=== PATIENT | male | born 1980 | race Caucasian/White ===

== ENCOUNTER 2020-06-13 13:03 | Emergency (ER) | payer SELFPAY ==
[~2020-06-13] VITALS: Ht 170 cm; Wt 88.4 kg
[2020-06-13] MEDS ORDERED: ASPIRIN 81 MG CHEW (CHILDREN'S ASA) ONE (13:50)
[2020-06-13] MEDS ORDERED: NITROGLYCERIN 0.4 MG SL TABS BTL 25'S SL ONE (13:50)
[2020-06-13] MEDS: NITROGLYCERIN 0.4 MG SL TABS BTL 25'S SL PRN ×2 (13:55→14:01)
[2020-06-13 13:57] LABS: BASOPHILS % (AUTO) 0 % (0-10); EOSINOPHILS # (AUTO) 0.1 10^3/uL (0.0-0.3); EOSINOPHILS % (AUTO) 1 % (0-10); HEMATOCRIT 46 % (40-54); HEMOGLOBIN 15.3 g/dL (13.3-17.7); LYMPHOCYTES # (AUTO) 2.2 10^3/uL (1.0-4.0); LYMPHOCYTES % (AUTO) 25 % (12-44); MEAN CORPUSCULAR HEMOGLOBIN 30 pg (25-34); MEAN CORPUSCULAR HGB CONC 34 g/dL (32-36); MEAN CORPUSCULAR VOLUME 89 fL (80-99); MEAN PLATELET VOLUME 9.5 fL (9.0-12.2); MONOCYTES # (AUTO) 0.9 10^3/uL (0.0-1.0); MONOCYTES % (AUTO) 10 % (0-12); NEUTROPHILS # (AUTO) 5.6 10^3/uL (1.8-7.8); NEUTROPHILS % (AUTO) 63 % (42-75); PLATELET COUNT 209 10^3/uL (130-400); WHITE BLOOD COUNT 8.8 10^3/uL (4.3-11.0)
--- NOTE | 2020-06-13 13:57 | ED Chest Pain ---
General Chief Complaint: Chest Pain Stated Complaint: CP,SOB Nursing Triage Note: PATIENT STATES LEFT SIDE CHEST PAIN, STARTED LAST NIGHT, WORSENED TODAY. STATES BACK PAIN ALSO Nursing Sepsis Screen: No Definite Risk Source: patient Exam Limitations: no limitations History of Present Illness Date Seen by Provider: Jun 13, 2020 Time Seen by Provider: 13:34 Initial Comments Patient presents ER by private conveyance from home with chief complaint of chest pain. He denies any shortness of breath fever cough chills nausea vomiting diarrhea. No sick contacts. He says been having problems with this pain for couple weeks. This particular episode started yesterday evening, he was just sitting in a chair working when it started. It is not worse with exertion. He says as he gets up and walks around it feels better but when he sits down in a chair it is worse. He says the pain radiates through to his back which he is never had that pain before. In the middle of his back between his shoulder blades. No trauma. No history of coronary disease. Last use of methamphetamines was about 7 months ago. He has used tobacco has a history of hypertension and hyperlipidemia and recently was started on statins. He is known to [facility] for primary care. He does not have a history of coronary disease or lung disease. He was on diclofenac recently but was stopped at his last appointment a week or 2 ago because he had CKD stage II on labs. Patient has no significant family history outside of diabetes. He denies diabetes himself. The patient complains that the pain in his chest wall makes his chest and abdomen twitch rhythmically. Allergies and Home Medications Allergies Coded Allergies: No Known Drug Allergies (Unverified , 06/13/20) Patient Home Medication List Home Medication List Reviewed: Yes Review of Systems Review of Systems Constitutional: No chills, No diaphoresis, No fever, No malaise EENTM: No Blurred Vision, No Double Vision Respiratory: Denies Cough, Denies Shortness of Air Cardiovascular: Chest Pain; Denies Edema, Denies Lightheadedness Gastrointestinal: Denies Constipated, Denies Diarrhea Genitourinary: Denies Burning, Denies Discharge Musculoskeletal: see HPI, back pain; No joint pain Skin: No pruritus, No rash Psychiatric/Neurological: Denies Headache, Denies Numbness All Other Systems Reviewed Negative Unless Noted: Yes Past Qaiivey-Ngqfrm-Cvmezg Hx Patient Social History Alcohol Use: Occasionally Uses Recreational Drug Use: Yes Drug of Choice: meth 2020 Smoking Status: Current Everyday Smoker Type Used: Cigarettes Recent Foreign Travel: No Contact w/Someone Who Travel: No Recent Infectious Disease Expo: No Past Medical History Surgeries: No Cardiac: Yes High Cholesterol, Hypertension Genitourinary: Yes Renal Failure Physical Exam Vital Signs Vital Signs - First Documented 06/13/20 13:41 Temp 37.0 Pulse 93 Resp 20 B/P (MAP) 144/103 (117) Pulse Ox 97 O2 Delivery Room Air Capillary Refill : Less Than 3 Seconds Height, Weight, BMI Height: '" Weight: lbs. oz. kg; 30.00 BMI Method: General Appearance: Anxious, Mild Distress HEENT: PERRL/EOMI, Moist Mucous Membranes Neck: Full Range of Motion, Normal Inspection Respiratory: No Chest Non Tender (Chest wall tender to palpation); Lungs Clear, Normal Breath Sounds, No Accessory Muscle Use, No Respiratory Distress Cardiovascular: Regular Rate, Rhythm, No Edema, No Gallop, No JVD, No Murmur, Normal Peripheral Pulses Gastrointestinal: Normal Bowel Sounds, No Organomegaly, No Pulsatile Mass, Non Tender, Soft Extremity: Normal Capillary Refill, Normal Inspection, Normal Range of Motion, Non Tender, No Calf Tenderness, No Pedal Edema Neurologic/Psychiatric: Alert, Oriented x3, Normal Mood/Affect Skin: Normal Color, Warm/Dry Progress/Results/Core Measures Results/Orders Lab Results Laboratory Tests Test 06/13/20 13:45 Range/Units White Blood Count 8.8 4.3-11.0 10^3/uL Red Blood Count 5.13 4.30-5.52 10^6/uL Hemoglobin 15.3 13.3-17.7 g/dL Hematocrit 46 40-54 % Mean Corpuscular Volume 89 80-99 fL Mean Corpuscular Hemoglobin 30 25-34 pg Mean Corpuscular Hemoglobin Concent 34 32-36 g/dL Red Cell Distribution Width 12.8 10.0-14.5 % Platelet Count 209 130-400 10^3/uL Mean Platelet Volume 9.5 9.0-12.2 fL Immature Granulocyte % (Auto) 1 % Neutrophils (%) (Auto) 63 42-75 % Lymphocytes (%) (Auto) 25 12-44 % Monocytes (%) (Auto) 10 0-12 % Eosinophils (%) (Auto) 1 0-10 % Basophils (%) (Auto) 0 0-10 % Neutrophils # (Auto) 5.6 1.8-7.8 10^3/uL Lymphocytes # (Auto) 2.2 1.0-4.0 10^3/uL Monocytes # (Auto) 0.9 0.0-1.0 10^3/uL Eosinophils # (Auto) 0.1 0.0-0.3 10^3/uL Basophils # (Auto) 0.0 0.0-0.1 10^3/uL Immature Granulocyte # (Auto) 0.1 0.0-0.1 10^3/uL Prothrombin Time 13.3 12.2-14.7 SEC INR Comment 1.0 0.8-1.4 Activated Partial Thromboplast Time 29 24-35 SEC D-Dimer < 0.27 0.00-0.49 UG/ML Sodium Level 137 135-145 MMOL/L Potassium Level 4.0 3.6-5.0 MMOL/L Chloride Level 105 98-107 MMOL/L Carbon Dioxide Level 22 21-32 MMOL/L Anion Gap 10 5-14 MMOL/L Blood Urea Nitrogen 18 7-18 MG/DL Creatinine 0.99 0.60-1.30 MG/DL Estimat Glomerular Filtration Rate > 60 BUN/Creatinine Ratio 18 Glucose Level 99 70-105 MG/DL Calcium Level 9.3 8.5-10.1 MG/DL Corrected Calcium 8.5-10.1 MG/DL Magnesium Level 2.0 1.6-2.4 MG/DL Total Bilirubin 0.6 0.1-1.0 MG/DL Aspartate Amino Transf (AST/SGOT) 38 H 5-34 U/L Alanine Aminotransferase (ALT/SGPT) 70 H 0-55 U/L Alkaline Phosphatase 78 40-136 U/L Myoglobin 44.1 10.0-92.0 NG/ML Troponin I < 0.028 <0.028 NG/ML B-Type Natriuretic Peptide < 10.0 <100.0 PG/ML Total Protein 8.0 6.4-8.2 GM/DL Albumin 4.8 H 3.2-4.5 GM/DL Lipase 33 8-78 U/L My Orders Orders - LEX RANGEL Continuous Ekg Monitoring (06/13/20 13:15) Ekg Tracing (06/13/20 13:15) Cbc With Automated Diff (06/13/20 13:51) Magnesium (06/13/20 13:51) Chest 1 View, Ap/Pa Only (06/13/20 13:51) Ekg Tracing (06/13/20 13:51) Comprehensive Metabolic Panel (06/13/20 13:51) Myoglobin Serum (06/13/20 13:51) Protime With Inr (06/13/20 13:51) Partial Thromboplastin Time (06/13/20 13:51) O2 (06/13/20 13:51) Monitor-Rhythm Ecg Trace Only (06/13/20 13:51) Lipid Panel (06/14/20 06:00) Ed Iv/Invasive Line Start (06/13/20 13:51) Lipase (06/13/20 13:51) BNP (06/13/20 13:51) Fibrin Degradation Products (06/13/20 13:51) Troponin I (06/13/20 13:51) Nitroglycerin 0.4 Mg Btl 25's (Nitrostat (06/13/20 14:00) Aspirin Chewable Tablet (Baby Aspirin Ch (06/13/20 14:00) Ed Iv/Invasive Line Start (06/13/20 13:51) Ns Iv 1000 Ml (Sodium Chloride 0.9%) (06/13/20 14:00) Nitroglycerin 0.4 Mg Btl 25's (Nitrostat (06/13/20 13:50) Aspirin Chewable Tablet (Baby Aspirin Ch (06/13/20 13:50) Lidocaine 2% Viscous 15 Ml (Xylocaine Vi (06/13/20 14:30) Antacid Suspension (Mylanta Suspension (06/13/20 14:30) Famotidine Injection (Pepcid Injection) (06/13/20 14:30) Medications Given in ED Current Medications Medications Dose Ordered Sig/Janeth Route Start Time Stop Time Status Last Admin Dose Admin Al Hydrox/Mg Hydrox/Simethicone 30 ml ONCE ONCE PO 06/13/20 14:30 06/13/20 14:32 DC 06/13/20 14:49 30 ML Aspirin 324 mg ONCE ONCE PO 06/13/20 14:00 06/13/20 14:01 DC 06/13/20 13:54 324 MG Lidocaine HCl 15 ml ONCE ONCE PO 06/13/20 14:30 06/13/20 14:32 DC 06/13/20 14:49 15 ML Nitroglycerin 0.4 mg UD PRN SL 06/13/20 14:00 06/13/20 14:01 0.4 MG Vital Signs/I&O 06/13/20 06/13/20 13:41 13:43 Temp 37.0 Pulse 93 Resp 20 B/P (MAP) 144/103 (117) Pulse Ox 97 O2 Delivery Room Air Room Air Blood Pressure Mean: 117 Progress Progress Note #1: Time: 13:56 Progress Note Chest wall pain versus possible referred pain from gallbladder, coronary disease, pulmonary disease, less likely aortic disease. Since his pain radiates to his back but is reproducible on direct palpation of his back and osteoarthritis is more likely. GERD is also a possibility. Plan to start with aspirin nitroglycerin and some fluids. If this does not help we can trial a GI cocktail. Will get troponin, D-dimer and chest x-ray. If he has a negative troponin for this episode of pain this been going on for over 12 hours then his heart score would be 3 points. Low risk; 0.9-1.7% 30-day MACE. After 2 doses of nitroglycerin his pain went from a 7 out of 10 to a 5 out of 10. Progress Note #2: Time: 14:29 Progress Note Patient states his pains a back up to a 6 or 7. He is unconvinced the ni troglycerin helped. We will try a GI cocktail. He says he is no longer having anterior chest pain just under the left wrist and the left mid axillary region. No rash. Were going to try GI cocktail. Initial troponin is negative. Again he complains that his pain is causing twitching. Musculoskeletal remained to the top of the differential. Progress Note #3: Time: 15:07 Progress Note Patient states that his pain was significantly reduced to 3 out of 10 after the GI cocktail. It is very likely that the diclofenac caused some gastritis. He probably does have musculoskeletal pain. He describes an overnight stay in [place] with a stress test that was negative about a year ago. Were going to have him follow-up with cardiology in the clinic and if they give clearance he can then follow-up with Dr. Edwards, general surgery to consider endoscopy. Were going to put him on Carafate and omeprazole. Initial ECG Impression Date: Jun 13, 2020 Initial ECG Impression Time: 13:35 Initial ECG Rate: 95 Initial ECG Rhythm: Normal Sinus Initial ECG Intervals: Normal Initial ECG Impression: Normal Initial ECG Comparisson: No Previous ECG Available Comment Normal sinus rhythm without clinically relevant ST changes. Diagnostic Imaging Diagonstic Imaging: Xray Plain Films/CT/US/NM/MRI: chest Comments No acute cardiopulmonary processes on a 1 view chest x-ray. NAME: MIKAYLA AVITIA [facility] REC#: [id number] PT STATUS: REG ER : 1980 PHYSICIAN: LEX RANGEL MD ADMIT DATE: 06/13/20/ER Draft Date of Exam:06/13/20 CHEST 1 VIEW, AP/PA ONLY INDICATION: Left-sided chest pain. FINDINGS: Portable chest shows the lungs to be well-aerated and clear. There is no air-trapping. Heart is not enlarged. There is no pulmonary edema or hilar adenopathy. No pneumothorax or pleural effusion. No bony abnormalities. IMPRESSION: Normal portable chest. Dictated on workstation # [id number] Dict: 06/13/20 1425 Trans: 06/13/20 1426 [facility] [id number] Interpreted by: TERE HYMAN MD Electronically signed by: Reviewed: Reviewed by Me Departure Impression Primary Impression: Chest wall pain Additional Impressions: Gastroesophageal reflux disease Qualified Codes: K21.0 - Gastro-esophageal reflux disease with esophagitis NSAID induced gastritis Disposition: 01 HOME, SELF-CARE Condition: Stable Departure-Patient Inst. Decision time for Depature: 15:09 Referrals: [facility] (PCP/Family) Primary Care Physician TERE EDWARDS BASHAR J MD Patient Instructions: Costochondritis, Gastritis ED Add. Discharge Instructions: I suspect your chest pain is caused by the chest wall and not the heart. To help you work this up Dr. Pino would be willing to meet you in the clinic if you will give him a call. Continue taking your lisinopril and atorvastatin as prescribed. Stop taking the diclofenac, ibuprofen, Aleve, naproxen. Tylenol/paracetamol/acetaminophen is okay. Start taking omeprazole 40 mg daily for the next month. Start taking the Carafate 30 minutes prior to meals and at bedtime for the next 2 weeks to help treat your gastritis. I think your gastritis or stomach irritation is caused by the diclofenac. If the certified credit counselor releases you from his care with no further concerns then you may also follow-up with Dr. Edwards, general surgery. He can help you manage your symptoms if they are related to your stomach, gallbladder etc. Return to the nearest ER if you have more intractable pain that does not respond to Maalox/Mylanta/Tums/Rolaids etc. All discharge instructions reviewed with patient and/or family. Voiced understanding. Scripts Sucralfate (Carafate) 1 Gm Tablet 1 GM PO QIDACHS for 14 Days, #56 TAB 0 Refills Prov: LEX RANGEL 06/13/20 Omeprazole (Omeprazole) 40 Mg Capsule.dr 40 MG PO DAILY for 30 Days, #30 CAP 0 Refills Prov: LEX RANGEL 06/13/20 Copy Copies To 1: TERE EDWARDS DO; SHOBHA PINO MD, TITUS J Jun 13, 2020 13:57
[2020-06-13] MEDS ORDERED: ASPIRIN 81 MG CHEW (CHILDREN'S ASA) PO ONE (14:00)
[2020-06-13] MEDS ORDERED: NS IV 1000 ML 1,000 ML IV SCH (14:00)
[2020-06-13 14:08] LABS: ALBUMIN 4.8 GM/DL (3.2-4.5); CHLORIDE 105 MMOL/L (98-107); SODIUM 137 MMOL/L (135-145)
[2020-06-13 14:09] LABS: CALCIUM 9.3 MG/DL (8.5-10.1)
[2020-06-13 14:10] LABS: PROTHROMBIN TIME PATIENT 13.3 SEC (12.2-14.7)
[2020-06-13 14:11] LABS: GLUCOSE 99 MG/DL (70-105)
[2020-06-13 14:12] LABS: BILIRUBIN,TOTAL 0.6 MG/DL (0.1-1.0); CARBON DIOXIDE 22 MMOL/L (21-32)
[2020-06-13 14:14] LABS: ALKALINE PHOSPHATASE 78 U/L (40-136); CREATININE SERUM 0.99 MG/DL (0.60-1.30); GFR ESTIMATED > 60
[2020-06-13 14:15] LABS: BUN/CREATININE RATIO 18
[2020-06-13 14:17] LABS: ALANINE AMINOTRANSFERASE 70 U/L (0-55)
[2020-06-13 14:18] LABS: LIPASE 33 U/L (8-78)
--- NOTE | 2020-06-13 14:27 | Diagnostic Imaging Report ---
INDICATION: Left-sided chest pain. FINDINGS: Portable chest shows the lungs to be well-aerated and clear. There is no air-trapping. Heart is not enlarged. There is no pulmonary edema or hilar adenopathy. No pneumothorax or pleural effusion. No bony abnormalities. IMPRESSION: Normal portable chest. Dictated by: Dictated on workstation # [id number]
[2020-06-13] MEDS ORDERED: FAMOTIDINE 20MG/2ML IV (PEPCID) IV STA (14:30)
[2020-06-13] MEDS ORDERED: LIDOCAINE 2% VISCOUS 15 ML UDC PO ONE (14:30)
[2020-06-13] MEDS ORDERED: ANTACID SUSP 30 ML UDC (MYLANTA) PO ONE (14:30)
[2020-06-13] MEDS ORDERED: OMEP40CA27 PO (15:13)
[2020-06-13] MEDS ORDERED: SUCR1TAB36 PO (15:13)
[2020-06-13 15:23] VITALS: BP 122/88
== END 2020-06-13 15:23 | disposition home or self-care (01) ==
LOC: ER 13:09
DX: R07.89 Other chest pain (principal); K21.9 Gastro-esophageal reflux disease without esophagitis; K29.60 Other gastritis without bleeding; F41.9 Anxiety disorder, unspecified; F17.210 Nicotine dependence, cigarettes, uncomplicated
CPT/HCPCS: 36415; 71045; 80053; 83690; 83735; 83874; 83880; 84484; 85025; 85379; 85610; 85730; 93005; 93041

== ENCOUNTER 2021-04-21 05:42 | Outpatient (RCR) | payer SELFPAY ==
[~2021-04-21 05:42] MED LIST: OMEP40CA6 PO; SUCR1TAB36 PO
[2021-04-21] MEDS ORDERED: ATOR80TA76 PO (13:33)
[2021-04-21] MEDS ORDERED: LISI10TA25 PO (13:33)
== END 2021-04-28 09:01 | disposition home or self-care (01) ==
LOC: PREOP 05:42 → EDSTATUS 09:45 → PREOP 04-28 09:01
PROVIDERS: ATTEND Surgery
DX: Z01.818 Encounter for other preprocedural examination (principal)

== ENCOUNTER 2021-04-28 09:21 | Day surgery (SDC) | payer OTHER ==
[~2021-04-28] VITALS: Ht 172.7 cm; Wt 94.4 kg
[~2021-04-28 09:21] MED LIST changes: +ATOR80TA76 PO; +LISI10TA25 PO
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
[2021-04-28] MEDS ORDERED: LACTATED RINGERS 1,000 ML IV ONE (09:47)
[2021-04-28] MEDS ORDERED: LACTATED RINGERS 1,000 ML IV STA (09:53)
[2021-04-28] MEDS ORDERED: HURRICAINE EXT TUBE (BENZOCAINE) XX PRN (10:00)
[2021-04-28 10:11] VITALS: BP 123/81
--- NOTE | 2021-04-28 10:47 | Progress Note-Pre Operative ---
Pre-Operative Progress Note H&P Reviewed The H&P was reviewed, patient examined and no changes noted. Time Seen by Provider: 10:45 Date H&P Reviewed: Apr 28, 2021 Time H&P Reviewed: 10:44 Pre-Operative Diagnosis: Chronic gastritis, hx of H. Pylori TERE EDWARDS DO Apr 28, 2021 10:47
[2021-04-28] MEDS ORDERED: MIDAZOLAM 2 MG/2 ML (VERSED) VIAL ONE (11:17)
[2021-04-28] MEDS ORDERED: proPOfol 200 MG/20 ML (DIPRIVAN) VIAL IV ONE (11:17)
[2021-04-28 11:35] VITALS: BP 89/55
--- NOTE | 2021-04-28 11:36 | Progress Note-Post Operative ---
Post-Operative Progess Note Surgeon (s)/Crane Assembler (s) Surgeon TERE EDWARDS DO Crane Assembler: none Pre-Operative Diagnosis Chronic gastritis, hx of H. Pylori Post-Operative Diagnosis Gastritis Small hiatal hernia Procedure & Operative Findings Date of Procedure 04/28/21 Procedure Performed/Findings EGD with bx PROCEDURE NOTE: After informed consent was obtained, the patient was brought to the endoscopy suite, placed in bed in left lateral decubitus position. He was administered IV sedation by the INSTRUMENT TECH who then monitored vitals the entire time, heart rate, blood pressure and pulse ox and the scope was inserted down the mouth through the esophagus into the stomach. On the way down, noted some mild esophagitis, took a picture, pushed into the stomach, pushed past the antrum into the duodenum. Duodenum looked good. Pulled back and did a biopsy of antrum, then retroflexed the scope, saw small sliding hiatal hernia, took a picture of this and then pulled the scope into the GE junction, took another picture and then did a biopsy of the GE junction. Pushed the scope back into the stomach, suctioned all the air out of the stomach. At this point pulled the scope up the esophagus and out the mouth. The patient tolerated the procedure, and he recovered in endoscopy suite. Anesthesia Type IV sedation by INSTRUMENT TECH Estimated Blood Loss Estimated blood loss (mL): scant Specimens/Packing Specimens Removed Antral bx body of stomach bx GE jxn bx TERE EDWARDS DO Apr 28, 2021 11:36
--- NOTE | 2021-04-28 11:37 | Endoscopy Discharge Instruct ---
Endo Procedure/Findings Findings 1.: Gastritis 2.: Hiatal Hernia Discharge Instructions - Activity: You might feel a little sleepy until tomorrow. This is due to the medicine you received to relax you. Until tomorrow, you should: NOT drive a car, operate machinery or power tools. NOT drink any alcoholic beverages. NOT make any important decisions or sign importortant papers. Do not return to work until tomorrow, unless otherwise instructed. Resume previous activities tomorrow. Diet: Start by taking liquids. If you tolerate liquids, advance to solid food. 1.: EGD in 3 years Notify Physician - If you experience excessive bleeding, unusual abdominal pain, fever, or chest pain, contact your doctor immediately. TERE EDWARDS DO Apr 28, 2021 11:37
[2021-04-28 11:40] VITALS: BP_SYST 90; BP_SYST 95; BP_DIAS 50; BP_DIAS 51
[2021-04-28 12:10] VITALS: BP 121/78
[2021-04-28 12:11] VITALS: BP 121/78
--- NOTE | 2021-04-28 12:25 | Anesthesia-General Post-Op ---
MAC Patient Condition Mental Status/LOC: Same as Preop Cardiovascular: Satisfactory Nausea/Vomiting: Absent Respiratory: Satisfactory Pain: Controlled Complications: Absent Post Op Complications Complications None Follow Up Care/Instructions Patient Instructions None needed. Anesthesiology Discharge Order Discharge Order Patient is doing well, no complaints, stable vital signs, no apparent adverse anesthesia problems. No complications reported per nursing. SAMARA OLMOS CRNA Apr 28, 2021 12:25
== END 2021-04-28 12:10 | disposition home or self-care (01) ==
LOC: ENDO 09:21
PROVIDERS: ATTEND Surgery
DX: K29.50 Unspecified chronic gastritis without bleeding (principal); K21.00 Gastro-esophageal reflux disease with esophagitis, without bleeding; K44.9 Diaphragmatic hernia without obstruction or gangrene; I10 Essential (primary) hypertension; E78.00 Pure hypercholesterolemia, unspecified; E78.5 Hyperlipidemia, unspecified; E66.9 Obesity, unspecified; Z68.31 Body mass index [BMI] 31.0-31.9, adult; Z79.899 Other long term (current) drug therapy; Z86.19 Personal history of other infectious and parasitic diseases; Z20.822 Contact with and (suspected) exposure to COVID-19
CPT/HCPCS: 87636

== ENCOUNTER → 2021-06-30 | Outpatient (CLI) | payer OTHER ==
--- NOTE | 2021-06-30 13:06 | Diagnostic Imaging Report ---
PROCEDURE: CT head without contrast. TECHNIQUE: Multiple contiguous axial images were obtained through the brain without the use of intravenous contrast. Auto Exposure Controls were utilized during the CT exam to meet ALARA standards for radiation dose reduction. INDICATION: Increasing headache. COMPARISON: No prior studies are available for comparison. FINDINGS: The ventricles and sulci are within normal limits. No sulcal effacement or midline shift is identified. No acute intra-axial or extra-axial hemorrhage is detected. The cisterns are patent. The visualized paranasal sinuses are clear. IMPRESSION: No acute intracranial process is detected. Dictated by: Dictated on workstation # [id number]
== END ==
LOC: RAD 12:25
PROVIDERS: ATTEND Physician Assistant
DX: R51.9 Headache, unspecified (principal)
CPT/HCPCS: 70450